=== PATIENT | female | born 1955 | race Caucasian/White ===

== ENCOUNTER → 2016-11-14 | Outpatient (CLI) | payer BC ==
[~2016-11-14] MED LIST: ARM1 PO; CMD4 PO; EFF50 PO; MULT-506 PO; PRCUNK PO
--- NOTE | 2016-11-14 16:18 | MAMMOGRAPHY REPORT ---
UNILATERAL LEFT DIGITAL SCREENING MAMMOGRAM TOMOSYNTHESIS WITH CAD: 11/14/2016 CLINICAL HISTORY: Asymptomatic. Personal history of breast cancer. TECHNIQUE: Left breast tomosynthesis in addition to standard 2D mammography was performed. Current michael kelley was also evaluated with a Computer Aided Detection (CAD) system. COMPARISON: Comparison is made to exams dated: 11/11/2015 mammogram, 10/14/2014 mammogram, 10/13/2013 mammogram, 10/10/2012 mammogram, 10/05/2010 mammogram, and 10/04/2009 mammogram - [facility] enter. BREAST COMPOSITION: There are scattered areas of fibroglandular density in the left breast. FINDINGS: There are stable benign-appearing left breast microcalcifications. No suspicious mass, ar chitectural distortion or cluster of new, suspicious microcalcifications is seen. IMPRESSION: ACR BI-RADS CATEGORY 1: NEGATIVE There is no mammographic evidence of malignancy. A 1 year screening mammogram is recommended. The p atient will receive written notification of the results. Approximately 10% of breast cancers are not detected with mammography. A negative mammographic repor t should not delay biopsy if a clinically suggestive mass is present. Janessa Mederos M.D. ay/:11/14/2016 16:07:[address]: Love Kwan, [facility] letter sent: Normal 1/2 BI-RADS Code: ACR BI-RADS Category 1: Negative
== END | disposition home or self-care (01) ==
LOC: C.MAMM 11:48
PROVIDERS: ATTEND Obstetrics & Gynecology
DX: Z12.31 Encounter for screening mammogram for malignant neoplasm of breast (principal); Z90.11 Acquired absence of right breast and nipple

== ENCOUNTER → 2017-03-22 | Outpatient (CLI) | payer BC ==
--- NOTE | 2017-03-22 15:32 | DIAGNOSTIC IMAGING REPORT ---
AP STANDING VIEW OF BOTH KNEES; 2 VIEWS LEFT KNEE CLINICAL HISTORY: Chronic left knee pain. FINDINGS: An AP standing view of both knees with lateral and sunrise views of the left knee are compared to study dated 03/09/2014. The skeletal structures are osteopenic. A left knee arthroplasty is in near-anatomic alignment. There has been undersurface remodeling of the patella. No significant periprosthetic lucency is identified. No fracture is seen. There is no large joint effusion. Mild prepatellar soft tissue swelling is suggested. Survey images of the right knee on the frontal view show degenerative narrowing in the medial and lateral compartments and marginal osteophytes. IMPRESSION: No acute bony abnormality seen in the left knee noting an arthroplasty in near-anatomic alignment. Electronically signed by: Cliff Wiley M.D. 03/22/2017 3:30 PM Dictated Date/Time: 03/22/2017 3:29 PM
== END | disposition home or self-care (01) ==
LOC: C.RDSM 15:00
PROVIDERS: ATTEND Physician Assistant
DX: T84.84XA Pain due to internal orthopedic prosthetic devices, implants and grafts, initial encounter (principal); Y83.1 Surgical operation with implant of artificial internal device as the cause of abnormal reaction of the patient, or of later complication, without mention of misadventure at the time of the procedure

== ENCOUNTER → 2017-07-20 | Outpatient (CLI) | payer BC, OTHER ==
--- NOTE | 2017-07-20 08:49 | DIAGNOSTIC IMAGING REPORT ---
R KNEE 4 OR MORE CLINICAL HISTORY: RIGHT KNEE PAIN pain COMPARISON: None. DISCUSSION: Moderate degenerative change of all major joint compartments of the right knee. Sclerosis of the articular services. Minimal lateral osteophyte reformation. Minimal osteophytic reaction of the tibial spines. Mild osteophytic reactions at the margins of the medial and lateral joint compartments. No significant joint effusion. Patient is status post total left knee arthroplasty. There is no evidence for soft tissue swelling. IMPRESSION: Moderate degenerative change all major joint compartments right knee. Pre-existing total left knee arthroplasty good position. The above report was generated using voice recognition software. It may contain grammatical, syntax or spelling errors. Electronically signed by: Holland Mosher M.D. 07/20/2017 8:48 AM Dictated Date/Time: 07/20/2017 8:47 AM
== END | disposition home or self-care (01) ==
LOC: C.RDSM 08:35
PROVIDERS: ATTEND Physician Assistant
DX: M25.561 Pain in right knee (principal)

== ENCOUNTER → 2017-08-14 | Outpatient (CLI) | payer OTHER | END | disposition home or self-care (01) | LOC: C.MAMM 08:20 | PROVIDERS: ATTEND Internal Medicine Hematology & Oncology | DX: C50.911 Malignant neoplasm of unspecified site of right female breast (principal); Z79.811 Long term (current) use of aromatase inhibitors ==

== ENCOUNTER → 2017-08-15 | Outpatient (CLI) | payer OTHER | END | disposition home or self-care (01) | LOC: C.PAPS 11:38 | PROVIDERS: ATTEND Obstetrics & Gynecology | DX: Z12.4 Encounter for screening for malignant neoplasm of cervix (principal); N95.2 Postmenopausal atrophic vaginitis ==

== ENCOUNTER → 2017-11-15 | Outpatient (CLI) | payer OTHER ==
--- NOTE | 2017-11-16 15:14 | MAMMOGRAPHY REPORT ---
UNILATERAL LEFT DIGITAL SCREENING MAMMOGRAM TOMOSYNTHESIS WITH CAD: 11/15/2017 CLINICAL HISTORY: Asymptomatic. Personal history of breast cancer. TECHNIQUE: Breast tomosynthesis in addition to standard 2D mammography was performed. Current study was also evaluated with a Computer Aided Detection (CAD) system. COMPARISON: Comparison is made to exams dated: 11/14/2016 mammogram, 11/11/2015 mammogram, 10/14/2014 m ammogram, 10/13/2013 mammogram, 10/10/2012 mammogram, and 10/10/2011 mammogram - [facility] enter. BREAST COMPOSITION: There are scattered areas of fibroglandular density in the left breast. FINDINGS: There are no suspicious masses, calcifications, or areas of architectural distortion noted within the left breast. There has been no significant interval change compared to prior exams. Scat tered benign-appearing left breast calcifications are not significantly changed. IMPRESSION: ACR BI-RADS CATEGORY 2: BENIGN There is no mammographic evidence of malignancy. A 1 year screening mammogram is recommended. The pa tient will receive written notification of the results. Approximately 10% of breast cancers are not detected with mammography. A negative mammographic report should not delay biopsy if a clinically suggestive mass is present. Concetta Anderson M.D. ah/:11/15/2017 16:00:26 [employer]: Aga BENAVIDEZ)(), [facility] letter sent: Normal 1/2 BI-RADS Code: ACR BI-RADS Category 2: Benign
== END | disposition home or self-care (01) ==
LOC: C.MAMM 15:33
PROVIDERS: ATTEND Obstetrics & Gynecology
DX: Z12.31 Encounter for screening mammogram for malignant neoplasm of breast (principal); Z85.3 Personal history of malignant neoplasm of breast; Z90.12 Acquired absence of left breast and nipple